=== PATIENT | male | born 1940 | race Caucasian/White ===

== ENCOUNTER 2020-08-14 11:05 | Inpatient (IN) | payer OTHER ==
[~2020-08-14] VITALS: Ht 172.7 cm; Wt 64.9 kg
[2020-08-14] MEDS ORDERED: ASPIRIN ADULT L81 M1 PO (12:43)
[2020-08-14] MEDS ORDERED: COZAAR50 M1 PO (12:43)
[2020-08-14] MEDS ORDERED: EXELON1 EACH T (12:44)
[2020-08-14] MEDS ORDERED: MIRALAX17 GM PO (12:46)
[2020-08-14] MEDS ORDERED: MELATONIN3 MG PO ×2 (12:48→15:36)
[2020-08-14] MEDS ORDERED: NAMENDA10 MG PO (12:48)
[2020-08-14] MEDS ORDERED: DEPAKOTE SPRIN125 MG PO (12:49)
[2020-08-14] MEDS ORDERED: RISPERDAL0.5 MG PO (12:49)
[2020-08-14] MEDS ORDERED: 8 HOUR PAIN RE650 M1 PO (12:50)
[2020-08-14] MEDS ORDERED: DULCOLAX10 M1 R (12:51)
[2020-08-14] MEDS ORDERED: FLEET ENEMA 13133 ML R (12:52)
[2020-08-14] MEDS ORDERED: MILK OF MA2400 MG/10 PO (12:53)
[2020-08-14] MEDS ORDERED: VISTARIL50 MG PO (12:54)
[2020-08-14 14:52] VITALS: BP 142/73
[2020-08-14 19:46] VITALS: BP 133/70
[2020-08-15 06:37] LABS: BASO # 0.1 10*3/uL (0.0-0.1); EOS # 0.5 10*3/uL (0.0-0.4); EOS % 8.3 % (1.0-4.0); HEMATOCRIT 48.9 % (42.0-52.0); LYMPH # 1.8 10*3/uL (1.3-4.4); MEAN CELL VOLUME 99.8 fl (80.0-94.0); MEAN CORPUSCULAR HGB 32.4 pg (27.0-31.0); MEAN CORPUSCULAR HGB CONC 32.5 g/dl (33.0-37.0); MEAN PLATELET VOLUME 10.2 fl (9.6-12.3); MONO # 0.5 10*3/uL (0.1-1.0); MONO % 8.4 % (3.0-9.0); NEUT # 3.2 10*3/uL (2.3-7.9); PLATELET COUNT AUTOMATED 143 10*3/uL (130-400); RED CELL DISTRI WIDTH 12.5 % (0-14.5); WHITE BLOOD COUNT 6.1 10*3/uL (4.8-10.8)
[2020-08-15 07:05] LABS: ALKALINE PHOSPHATASE 82 U/L (45-117); BUN 24 mg/dl (7-24); CHLORIDE 110 mmol/L (98-107); CHOLESTEROL 139 mg/dL (<200); CREATININE 1.18 mg/dL (0.70-1.30); HDL CHOLESTEROL 51 mg/dl (40-60); LDL CHOLESTEROL 76 mg/dL (9-159); POTASSIUM 4.5 mmol/L (3.5-5.1); SGOT/AST 13 IU/L (3-35); SGPT/ALT 19 U/L (12-78); SODIUM 145 mmol/L (136-145); TOTAL PROTEIN 6.4 gm/dL (6.4-8.2); TRIGLYCERIDES 58 mg/dl (<150); VLDL CHOLESTEROL 12 mg/dL (6-40)
[2020-08-15 07:14] LABS: THYROID STIM HORMONE (HS) 0.681 uIU/ml (0.358-4.75); VALPROIC ACID (DEPAKENE) 80.6 ug/ml (50-100)
[2020-08-15 07:19] VITALS: BP 146/93
[2020-08-15 07:57] LABS: VITAMIN D, 25-HYDROXY 45.5 ng/mL (30-100)
[2020-08-15 20:00] VITALS: BP 142/88
[2020-08-16 07:54] VITALS: BP 129/78
[2020-08-16 20:00] VITALS: BP 126/74
[2020-08-17 07:35] VITALS: BP 148/83
[2020-08-17 20:00] VITALS: BP 113/85
[2020-08-18 07:12] VITALS: BP 125/81
[2020-08-18 14:17] LABS: BILIRUBIN Negative (Negative); BLOOD 3+ (Negative); CLARITY Cloudy (Clear); COLOR Dark Yellow (Yellow); GLUCOSE Negative (Negative); KETONE Trace (Negative); LEUKO ESTERASE Trace (Negative); NITRITE Negative (Negative); SPECIFIC GRAVITY >= 1.030 (1.001-1.030)
[2020-08-18 14:27] LABS: BACTERIA TRACE; FINE GRANULAR CAST 0-2; HYALINE CAST 0-2; MUCOUS 2+; RBC 51-100 rbc/hpf (0-2)
[2020-08-18 19:06] VITALS: BP 101/85
[2020-08-19 07:48] VITALS: BP 134/88
[2020-08-19 20:00] VITALS: BP 104/67
[2020-08-20 07:21] VITALS: BP 138/78
[2020-08-20 20:00] VITALS: BP 110/80
[2020-08-21 07:05] VITALS: BP 116/82
[2020-08-21 20:00] VITALS: BP 76/60
[2020-08-22 06:20] LABS: BASO % 0.6 % (0.0-1.0); EOS # 0.2 10*3/uL (0.0-0.4); EOS % 2.7 % (1.0-4.0); HEMATOCRIT 47.2 % (42.0-52.0); LYMPH # 1.3 10*3/uL (1.3-4.4); LYMPH % 20.8 % (27.0-41.0); MEAN CORPUSCULAR HGB 32.7 pg (27.0-31.0); MEAN CORPUSCULAR HGB CONC 33.1 g/dl (33.0-37.0); MEAN PLATELET VOLUME 10.6 fl (9.6-12.3); MONO # 0.7 10*3/uL (0.1-1.0); MONO % 10.4 % (3.0-9.0); NEUT # 4.1 10*3/uL (2.3-7.9); PLATELET COUNT AUTOMATED 113 10*3/uL (130-400); RED BLOOD COUNT 4.77 10*6/uL (4.50-5.90); RED CELL DISTRI WIDTH 12.2 % (0-14.5); WHITE BLOOD COUNT 6.4 10*3/uL (4.8-10.8)
[2020-08-22 06:35] VITALS: BP 116/76
[2020-08-22 06:42] LABS: POTASSIUM 4.2 mmol/L (3.5-5.1)
[2020-08-22 06:57] LABS: CREATININE 1.52 mg/dL (0.70-1.30); TOTAL PROTEIN 6.4 gm/dL (6.4-8.2); VALPROIC ACID (DEPAKENE) 82.4 ug/ml (50-100)
[2020-08-22 08:05] VITALS: BP 116/76
[2020-08-22] MEDS ORDERED: RISPERIDONE1 MG PO (09:07)
[2020-08-22] MEDS ORDERED: RISPERIDONE0.5 MG PO (09:07)
[2020-08-22] MEDS ORDERED: ROZEREM8 MG PO (09:07)
[2020-08-22] MEDS ORDERED: DIVALPROEX SOD125 M1 PO ×2 (09:07)
[2020-08-22] MEDS ORDERED: RIVASTIGMINE1 EAC2 T (09:07)
== END 2020-08-22 11:45 | DRG 883 ==
LOC: 3N 11:05
PROVIDERS: Counselor Professional; ADMIT Psychiatry & Neurology Psychiatry; ATTEND Psychiatry & Neurology Psychiatry
PROC: 0HBRXZZ Excision of Toe Nail, External Approach (ICD-10-PCS; principal; 2020-08-18)
PROC: 0HBRXZZ Excision of Toe Nail, External Approach (ICD-10-PCS; 2020-08-18)
PROC: 0HBRXZZ Excision of Toe Nail, External Approach (ICD-10-PCS; 2020-08-18)
PROC: 0HBRXZZ Excision of Toe Nail, External Approach (ICD-10-PCS; 2020-08-18)
PROC: 0HBRXZZ Excision of Toe Nail, External Approach (ICD-10-PCS; 2020-08-18)
PROC: 0HBRXZZ Excision of Toe Nail, External Approach (ICD-10-PCS; 2020-08-18)
PROC: 0HBRXZZ Excision of Toe Nail, External Approach (ICD-10-PCS; 2020-08-18)
PROC: 0HBRXZZ Excision of Toe Nail, External Approach (ICD-10-PCS; 2020-08-18)
PROC: 0HBRXZZ Excision of Toe Nail, External Approach (ICD-10-PCS; 2020-08-18)
PROC: 0HBRXZZ Excision of Toe Nail, External Approach (ICD-10-PCS; 2020-08-18)
DX: F63.81 Intermittent explosive disorder (principal); I11.0 Hypertensive heart disease with heart failure; G30.9 Alzheimer's disease, unspecified; Z20.822 Contact with and (suspected) exposure to COVID-19; I48.0 Paroxysmal atrial fibrillation; R13.10 Dysphagia, unspecified; B35.1 Tinea unguium; F02.80 Dementia in other diseases classified elsewhere, unspecified severity, without behavioral disturbance, psychotic disturbance, mood disturbance, and anxiety; I48.91 Unspecified atrial fibrillation; J44.9 Chronic obstructive pulmonary disease, unspecified; G47.00 Insomnia, unspecified; I50.9 Heart failure, unspecified; Z79.82 Long term (current) use of aspirin; Z79.899 Other long term (current) drug therapy; Z79.1 Long term (current) use of non-steroidal anti-inflammatories (NSAID)

== ENCOUNTER 2020-12-19 14:15 | Inpatient (IN) | payer OTHER ==
[~2020-12-19] VITALS: Ht 175.2 cm; Wt 63.5 kg
[~2020-12-19 14:15] MED LIST: 8 HOUR PAIN RE650 M1 PO; ASPIRIN ADULT L81 M1 PO; COZAAR50 M1 PO; DEPAKOTE SPRIN125 MG PO; DIVALPROEX SOD125 M1 PO; DULCOLAX10 M1 R; EXELON1 EACH T; FLEET ENEMA 13133 ML R; MELATONIN3 MG PO; MILK OF MA2400 MG/10 PO; MIRALAX17 GM PO; NAMENDA10 MG PO; RISPERDAL0.5 MG PO; RISPERIDONE0.5 MG PO; RISPERIDONE1 MG PO; RIVASTIGMINE1 EAC2 T; ROZEREM8 MG PO; VISTARIL50 MG PO
[2020-12-19] MEDS ORDERED: BIOFREEZE118 ML T (14:31)
[2020-12-19] MEDS ORDERED: LATU40TA PO (14:34)
[2020-12-19] MEDS ORDERED: NAMENDA10 MG PO (14:35)
[2020-12-19] MEDS ORDERED: FLEET ENEMA EX230 M1 R (14:38)
[2020-12-19 17:30] VITALS: BP 122/80
[2020-12-19 20:00] VITALS: BP 130/80
[2020-12-20 06:29] LABS: BILIRUBIN Negative (Negative); BLOOD Negative (Negative); CLARITY Clear (Clear); COLOR Yellow (Yellow); GLUCOSE Negative (Negative); KETONE Negative (Negative); LEUKO ESTERASE Trace (Negative); NITRITE Negative (Negative); SPECIFIC GRAVITY 1.015 (1.001-1.030)
[2020-12-20 06:29] LABS: BASO % 0.6 % (0.0-1.0); EOS # 0.6 10*3/uL (0.0-0.4); EOS % 11.7 % (1.0-4.0); HEMATOCRIT 43.3 % (42.0-52.0); LYMPH # 1.3 10*3/uL (1.3-4.4); LYMPH % 23.1 % (27.0-41.0); MEAN CELL VOLUME 98.4 fl (80.0-94.0); MEAN CORPUSCULAR HGB 32.3 pg (27.0-31.0); MEAN CORPUSCULAR HGB CONC 32.8 g/dl (33.0-37.0); MEAN PLATELET VOLUME 10.3 fl (9.6-12.3); MONO # 0.4 10*3/uL (0.1-1.0); MONO % 7.8 % (3.0-9.0); NEUT # 3.1 10*3/uL (2.3-7.9); NEUT % 56.6 % (47.0-73.0); PLATELET COUNT AUTOMATED 152 10*3/uL (130-400); RED CELL DISTRI WIDTH 12.7 % (0-14.5); WHITE BLOOD COUNT 5.4 10*3/uL (4.8-10.8)
[2020-12-20 06:45] LABS: ALBUMIN 3.3 gm/dl (3.1-4.5); BUN 26 mg/dl (7-24); CHLORIDE 108 mmol/L (98-107); CHOLESTEROL 150 mg/dL (<200); CREATININE 1.08 mg/dL (0.70-1.30); LDL CHOLESTEROL 77 mg/dL (9-159); POTASSIUM 4.4 mmol/L (3.5-5.1); SGOT/AST 16 IU/L (3-35); SGPT/ALT 20 U/L (12-78); SODIUM 141 mmol/L (136-145); TOTAL PROTEIN 6.9 gm/dL (6.4-8.2); TRIGLYCERIDES 57 mg/dl (<150)
[2020-12-20 06:51] LABS: ALKALINE PHOSPHATASE 92 U/L (45-117)
[2020-12-20 07:17] LABS: BACTERIA 1+; WBC 16-20 wbc/hpf (0-5)
[2020-12-20 07:48] LABS: VITAMIN D, 25-HYDROXY 44.2 ng/mL (30-100)
[2020-12-20 08:10] VITALS: BP 128/86
[2020-12-20 20:00] VITALS: BP 113/87
[2020-12-21 08:10] VITALS: BP 126/89
[2020-12-21 20:00] VITALS: BP 116/76
[2020-12-22 07:17] VITALS: BP 136/86
[2020-12-22 20:00] VITALS: BP 111/65
[2020-12-23 07:27] VITALS: BP 116/70
[2020-12-23 20:00] VITALS: BP 125/54
[2020-12-24 07:39] VITALS: BP 150/96
[2020-12-24 20:00] VITALS: BP 119/75
[2020-12-25 08:03] VITALS: BP 152/79
[2020-12-25] MEDS ORDERED: PALIPERIDONE ER3 MG PO (09:35)
[2020-12-25] MEDS ORDERED: RIVASTIGMINE1 EAC2 T (09:35)
[2020-12-25] MEDS ORDERED: DIVALPROEX SOD125 M1 PO (09:35)
[2020-12-25] MEDS ORDERED: MEMANTINE HCL10 MG PO (09:35)
== END 2020-12-25 18:20 | DRG 883 ==
LOC: 3N 14:15
PROVIDERS: ADMIT Psychiatry & Neurology Psychiatry; ATTEND Psychiatry & Neurology Psychiatry
DX: F63.81 Intermittent explosive disorder (principal); I11.0 Hypertensive heart disease with heart failure; F02.81 Dementia in other diseases classified elsewhere, unspecified severity, with behavioral disturbance; I71.4 Abdominal aortic aneurysm, without rupture; J44.9 Chronic obstructive pulmonary disease, unspecified; I48.91 Unspecified atrial fibrillation; G47.00 Insomnia, unspecified; I50.9 Heart failure, unspecified; R73.9 Hyperglycemia, unspecified; E87.8 Other disorders of electrolyte and fluid balance, not elsewhere classified; G30.9 Alzheimer's disease, unspecified